=== PATIENT | male | born 1945 | race Caucasian/White ===

== ENCOUNTER → 2016-06-08 | Outpatient (CLI) | payer MEDICARE, BC ==
[~2016-06-08] MED LIST: ALLOPURINOL300 MG PO; BUMEX2 MG PO; COREG6.25 M1 PO; FENOFIBRATE145 M1 PO; LEXAPRO PO; LIPITOR20 MG PO; NORVASC PO; PRADAXA75 MG PO; RYTHMOL PO; SILDENAFIL20 MG PO; VALACYCLOVIR1000 MG PO
[2016-06-08 12:09] LABS: ALBUMIN SERUM 4.1 g/dL (3.5-5.0); BILIRUBIN,TOTAL 0.7 mg/dL (0.2-2.0); CALCIUM SERUM 9.7 mg/dL (8.4-10.2); CREATININE SERUM 1.7 mg/dL (0.6-1.4); GLOM FILT RATE Estimated 39.4 mL/min (>60); POTASSIUM 5.2 mmol/L (3.5-5.1); PROTEIN TOTAL SERUM 6.8 g/dL (6.0-8.3)
== END | disposition home or self-care (01) ==
LOC: SLABONLY 11:22
DX: N19 Unspecified kidney failure (principal); R53.1 Weakness
CPT/HCPCS: 80053; 82164; 82306

== ENCOUNTER → 2016-07-11 | Outpatient (CLI) | payer MEDICARE, BC ==
[2016-07-11 15:42] LABS: HEMATOCRIT 36.1 % (38.0-50.0); HEMOGLOBIN 11.6 gm/dL (13.0-16.0); MEAN CELL VOLUME 100.8 FL (83-96); MEAN CORPUSCULAR HEMOGLOBIN 32.5 PG (28-34); MEAN CORPUSCULAR HGB CONC 32.2 g/dL (30-36); RED BLOOD COUNT 3.58 X10e (3.90-5.60); RED CELL DISTRIBUTION WIDTH 14.9 % (11.0-15.5); WHITE BLOOD COUNT 6.1 X10e3 (4.0-10.5)
[2016-07-11 15:59] LABS: ALBUMIN SERUM 3.9 g/dL (3.5-5.0); BILIRUBIN,TOTAL 0.2 mg/dL (0.2-2.0); BUN/CREATININE RATIO 14.37; CALCIUM SERUM 9.3 mg/dL (8.4-10.2); CREATININE SERUM 1.6 mg/dL (0.6-1.4); GLOM FILT RATE Estimated 42.4 mL/min (>60); POTASSIUM 4.4 mmol/L (3.5-5.1)
== END | disposition home or self-care (01) ==
LOC: SLABONLY 12:56
DX: N19 Unspecified kidney failure (principal)
CPT/HCPCS: 36415; 80053; 85027

== ENCOUNTER → 2016-08-31 | Outpatient (CLI) | payer MEDICARE, BC ==
[2016-08-31 16:06] LABS: HEMATOCRIT 35.3 % (38.0-50.0); HEMOGLOBIN 11.4 gm/dL (13.0-16.0); MEAN CELL VOLUME 99.6 FL (83-96); MEAN CORPUSCULAR HEMOGLOBIN 32.1 PG (28-34); MEAN CORPUSCULAR HGB CONC 32.2 g/dL (30-36); RED BLOOD COUNT 3.54 X10e (3.90-5.60); RED CELL DISTRIBUTION WIDTH 18.7 % (11.0-15.5); WHITE BLOOD COUNT 5.2 X10e3 (4.0-10.5)
[2016-08-31 17:42] LABS: ALBUMIN SERUM 3.9 g/dL (3.5-5.0); BILIRUBIN,TOTAL 0.6 mg/dL (0.2-2.0); BUN/CREATININE RATIO 11.05; CALCIUM SERUM 9.9 mg/dL (8.4-10.2); CREATININE SERUM 1.9 mg/dL (0.6-1.4); GLOM FILT RATE Estimated 34.5 mL/min (>60); PROTEIN TOTAL SERUM 6.2 g/dL (6.0-8.3)
[2016-08-31 17:52] LABS: THYROID STIMULATING HORMONE 1.29 uIU/ml (0.34-5.60)
[2016-08-31 21:55] LABS: FREE T3 2.5 pg/mL (2.5-3.9)
[2016-08-31 21:57] LABS: FREE THYROXIN (T4) 0.93 ng/dL (0.58-1.64)
[2016-09-06 18:08] LABS: ACETYLCHOLINE RECEPT BLOCK AB <15 (<15); ACETYLCHOLINE RECEPTER MODU AB 13 % (()); ACETYLCHOLINE RECEPTR BIND <0.30 nmol/L (<=0.30); ANA SCREEN Negative (Negative); GLIADIN IGA AB 4 Units (<20); GLIADIN IGG AB 4 Units (<20); RETICULIN IGA SCREEN W/REFLEX Negative (Negative); TISSUE TRANSGLUTAMINASE IGA AB 1 U/mL (<4); VITAMIN B6 18.9 ng/mL (2.1-21.7)
== END | disposition home or self-care (01) ==
LOC: SLAB 15:33
PROVIDERS: Psychiatry & Neurology Neurology
DX: G62.9 Polyneuropathy, unspecified (principal)
CPT/HCPCS: 36415; 80053; 83516; 83519; 84207; 84439; 84443; 84446; 84481; 84591; 85027; 85651; 86038; 86039; 86140; 86255; 86430; 86592